=== PATIENT | male | born 1980 | race Caucasian/White ===

== ENCOUNTER → 2020-01-10 | Outpatient (CLI) | payer BC | END | disposition home or self-care (01) | LOC: COVID19 12:49 | PROVIDERS: ATTEND Nurse Practitioner Family | DX: Z20.828 Contact with and (suspected) exposure to other viral communicable diseases (principal) ==

== ENCOUNTER → 2020-01-15 | Outpatient (CLI) | payer BC | END | disposition home or self-care (01) | LOC: COVID19 11:42 | PROVIDERS: ATTEND Family Medicine | DX: U07.1 COVID-19 (principal) ==